=== PATIENT | male | born 1950 | race Caucasian/White ===

== ENCOUNTER 2025-05-13 14:54 | Outpatient (AMB) | payer MEDICARE, OTHER, SELFPAY ==
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
--- OUTSIDE RECORDS SUMMARY | 2025-05-13 18:29 | XMS_ITS ---
Author Name [facility] Organization Unknown Care Team Organization Name Specialty Phone Email Start Date End Da birgit [facility] Denise Rodrigues Primary Care 07/04/2022 4
--- OUTSIDE RECORDS SUMMARY | 2025-05-13 18:29 | XMS_ITS | Clinical Summary ---
Author Organization [facility] Address [address] [place] [id number] Phone Care Team Providers Care Hvac Service Manager Name Role Phone Denise Rodrigues MD Primary Care Provider [phone] Medications No known medications Active Problems No known active problems Social History Tobacco Use Types Packs/Day Years Used Date Smoking Tobacco: Never Assessed Education Answer Date Recorded Are you interested in more education? Not on pito e 12/23/2022 Are you concerned about learning? Not on file 12/23/2022 No 12/23/2022 No 12/23/2022 Digital Access Answer Date Recorded No 01/21/2023 No 01/21/2023 Reliable internet access at home? Not on file 01/21/2023 Device with a working camera? Not on file Sex and Gender Information Value Date Recorded Sex Assigned at Male 07/25/2022 10:10 AM EST Legal Sex Male 10:08 AM EST Gender Identity Male 07/25/2022 10:10 AM EST Sexual Orientation Straight 07/25/2022 10 :10 AM EST Plan of Treatment Health Maintenance Due Date Last Done Comments Adult Td,Tdap Booster 1948 LIPID PANEL 1948 DEPRESSION SCREENING 1960 SMOKING Hx and SMOKELESS TOB ACCO SCREENING 1961 HEPATITIS C SCREENING 1966 PNEUMOCOCCAL VACCINES (50+ y ears) (1 of 1 - PCV) 1998 ZOSTER VACCINES (1 of 2) 1998 RSV VACCINE (1 - 1-dose 75+ series) 2023 INFLUENZA VACCINE (#1) 2025 COVID-19 VACCINE (2023-2 5 season) 2025 HEPATITIS A VACCINES Aged Out No long er eligible based on patient's age to complete this topic HIB VACCINES Aged Out No longer eligi ble based on patient's age to complete this topic MENINGOCOCCAL VACCINES (ACWY) Aged Out No longer eligible based on patient's age to complete this topic MENINGOCOCCAL VACCINES (B) Aged Out N o longer eligible based on patient's age to complete this topic Medical Devices Not on file Insurance [employer] Care Teams Hvac Service Manager Relationship Specialty Start Date End Date Denise Rodrigues MD [address] [place] [id number] PCP - General Internal Medicine 07/25/22 Additional Source Comments The information contained in this document represents components of the legal health record. It is not the complete legal health record.[facility]
--- OUTSIDE RECORDS SUMMARY | 2025-05-13 18:29 | XMS_ITS | Clinical Summary ---
Author Organization [place] [address] [address] [facility] Address [address] [place] [address] Phone Care Team Providers Care Change Control Coordinator Name Role Phone Olu Salinasa Primary Care Provider [phone] Allergies Active Allergy Reactions Criticality Noted Date Comments Aspirin 12/11/2005 Heartburn. Medications atorvastatin (LIPITOR) 40 mg tablet Take 1 tablet (40 mg total) by mouth 1 (one) time each day. 4 Active tamsulosin (FLOMAX) 0.4 mg 24 hr capsule Take 1 capsule (0.4 mg total) by mouth 1 (one) time each day. Take 1 Capsule by mouth daily. Take 30 mins after same meal every day 90 capsule 1 5 Active sildenafiL (VIAGRA) 100 mg tablet TAKE ONE TABLET BY MOUTH APPROXIMATELY ONE HOUR BEFORE SEXUAL ACTIVITY. DO NOT USE MORE THAN ONE DOSE DAILY 10 tablet 1 5 Active ergocalciferol (VITAMIN D-2) 1,250 mcg (50,000 unit) capsule Take 1 capsule (50,000 Units total) by mouth 1 (one) time per week. 12 capsule 5 025 Active Problems Problem Noted Date Diagnosed Date Benign prostatic hyperplasia without lower urinary tract symptoms 11/10/2024 COVID-19 06/11/2022 Prediabetes 07/26/2020 Lipoma of face 08/13/2019 Diverticulosis 10/11/2014 Overview (05/07/2024): CT 10/11 Urolithiasis 10/11/2014 Overview (05/07/2024): CT 2/15 Hematuria 09/22/2014 Erectile dysfunction 05/15/2013 Hypercholesterolemia 09/11/2006 Encounters Date Type Department Care Team Description 05/04/2025 Telephone Internal Medicine - [facility] [address] [place] [id number] Isatu Salinas DO from Last 3 Months Immunizations Name Administration Dates Next Due Influenza trivalent, 0.5mL ( Fluzone High-dose) 65yo and older 05/31/2020 Moderna SARS-CoV-2 COVID-19, mRNA, LNP-S, preservative free 07/27/2021,11/03/2020,10/08/2020 Surgical History Surgery Date Site/Laterality Comments COLONOSCOPY 11/27/2006 PROCEDURE: CO COLONOSCOPY STOMA DX INCLUDING COLLJ SPEC SPX; COMMENT: Zeroogian; hyperplastic polyp; r 10 y OTHER SURGICAL HISTORY 06/27/2005 PROCEDURE: CHG ASSAY OF PROSTATE SPECIFIC ANTIGEN FREE; COMMENT: 0.3 SHOULDER SURGERY PROCEDURE: HISTORICAL SHOULDER SURGERY; COMMENT: Right , dislocation LITHOTRIPSY PROCEDURE: HISTORICAL LITHOTRIPSY; COMMENT: Brecht x 2 KNEE ARTHROSCOPY 09/27/2015 Right PROCEDURE: CO ARTHROSCOPY KNEE DIAGNOSTIC W/WO SYNOVIAL BX SPX; COMMENT: NEOS Medical History Medical History Date Comments Other and unspecified hyperlipidemia 09/11/2006 DX:Other and unspecified hyperlipidemia Diverticulosis 10/11/2014 DX:Diverticulosi s Urolithiasis 10/11/2014 DX:Urolithiasis; COMMENT: CT 2 Hematuria 09/22/2014 DX:Hematuria Erectile dysfunction 05/15/2013 DX:Erectile dysfunction Hyperlipidemia 09/11/2006 DX:Hyperlipidemi a Family History Medical History Relation Name Comments Alcohol abuse Brother x2 1 Other: Other Brother x2 1 brain damage d ue to attempted suicide attempt choked to , depression No Known Problems Daughter 1 No Known Problems Daughter 2 No Known Problems Daughter 3 Dementia Father sepsis Hyperlipidemia Father Breast cancer Mother Dementia Mother ulcers Hyperlipidemia Mother No Known Problems Sister Relation Name Status Comments Brother x2 1 Alive Daughter 1 Alive Daughter 2 Alive Daughter 3 Alive Father Mother Sister Alive Social History Tobacco Use Types Packs/Day Years Used Date Smoking Tobacco: Former Cigarettes Q uit: 08/27/1976 Smokeless Tobacco: Never Alcohol Use Standard Drinks/Week Comments Yes 0 (1 standard drink = 0.6 oz pur e alcohol) Sex and Gender Information Value Date Recorded Sex Assigned at Not on file Legal Sex Male 11:57 AM EST Gender Identity Not on file Sexual Orientation Not on file Obstetrics History Last Filed Vital Signs Vital Sign Reading Time Taken Comments Blood Pressure 118/75 01/21/2025 10:36 AM EDT A Pulse 68 01/21/2025 10:36 AM EDT Temperature - - Respiratory Rate - - Oxygen Saturation - - Inhaled Oxygen Concentration - - Weight 87.4 kg (192 lb 9.6 oz) 01/21/2025 10:36 AM EDT Height 185.4 cm (6' 1 ) 01/21/2025 10:36 AM EDT Body Mass Index 25.41 01/21/2025 10:36 AM EDT Plan of Treatment Upcoming Encounters Date Type Department Care Team (Late st Contact Info) Description 05/18/2025 3:30 PM EDT Office Visit Internal Medicine - [address] [id number] Kami Samaniego NP [address] [place] [id number] Health Maintenance Due Date Last Done Comments DTaP,Tdap,and Td Vaccines (1 - Tdap) 1967 Zoster Vaccines (1 of 2) 1998 Social Influencers of Health Screening 08/05/2022 RSV Immunization Adult Patients (1 - 1-dose 75+ series) 2023 Depression Screening 08/27/2024 02/07/2024 Medicare Annual Wellness Visit 02/06/2025 02/07/2024 Falls Risk Assessment 04/09/2025 04/09/2024 Cholesterol Screening (Lipid Panel) 11/17/2029 11/17/2024, 04/11/2024, 04/11/2024 Influenza Vaccine Discontinued 05/31/2020 Hepatitis C Screening Completed 03/27/2022 COVID-19 Vaccine Discontinued 05/24/2022, 08/2020, 11/03/2020, Additional history exists HIB Vaccines Aged Out No longer eligi ble based on patient's age to complete this topic HPV Vaccines Aged Out No longer eligi ble based on patient's age to complete this topic Hepatitis A Vaccines Aged Out No long er eligible based on patient's age to complete this topic Hepatitis B Vaccines Aged Out No long er eligible based on patient's age to complete this topic IPV Vaccines Aged Out No longer eligi ble based on patient's age to complete this topic MMR Vaccines Aged Out No longer eligi ble based on patient's age to complete this topic Meningococcal ACWY Vaccine Aged Out N o longer eligible based on patient's age to complete this topic Meningococcal B Vaccine Aged Out No l onger eligible based on patient's age to complete this topic Pneumococcal Vaccine: 50+ Years Discontinued RSV Immunization Patients Under 20 months Aged Out No longer eligible based on patient's age to complete this topic Varicella Vaccines Aged Out No longer eligible based on patient's age to complete this topic Procedures Procedure Name Priority Date/Time Associated Diagnosis Comments LIPID PANEL WITH REFLEX TO DIRECT LDL Routine 11/17/2024 3:48 PM EDT Hypercholesterolemi a FALLS RISK ASSESSMENT Routine 04/09/2024 DEPRESSION SCREENING Routine 02/07/2024 HEPATITIS C SCREENING Routine 03/27/2022 from Last 3 Months or Most Recently Relevant to Health Maintenance Results * (ABNORMAL) Lipid panel with reflex to direct LDL (11/17/2024 3:48 PM EDT) Cholesterol 183 0 - 200 mg/dL LAB CHEMISTRY METHOD 11/17/2024 6:58 PM EDT [facility] Triglycerides 59 0 - 150 mg/dL LAB CHEMISTRY METHOD 11/17/2024 6:58 PM EDT [facility] HDL 65 >=40 mg/dL LAB CHEMISTRY METHOD 11/17/2024 6:58 PM EDT [facility] LDL Calculated 106(H) 0 - 100 mg/dL LAB CHEMISTRY METHOD 11/17/2024 6:58 PM EDT [facility] VLDL Cholesterol Zoran 11.8 mg/dL LAB CHEMISTRY METHOD 11/17/2024 6:58 PM EDT [facility] Non HDL Chol. (LDL+VLDL) 118 <145 mg/dL LAB CHEMISTRY METHOD 11/17/2024 6:58 PM EDT [facility] Chol/HDL Ratio 2.8 0.0 - 4.4 LAB CHEMISTRY METHOD 11/17/2024 6:58 PM EDT [facility] Blood Venous blood specimen / Unknown Venipuncture / Unknown 11/17/2024 3:48 PM EDT 11/17/2024 3:52 PM EDT Priscilla Gamboa [facility] BLOOD ORDERABLES Final Resu lt [facility] [address] [place] [address], * Falls Risk Assessment (04/09/2024) [facility] Falls Risk Assessment abstracted Historical Provider HEALTH MAINTENANCE Final Result * Depression Screening (02/07/2024) [facility] Depression Screening abstracted Historical Provider HEALTH MAINTENANCE Final Result * Hepatitis C Screening (03/27/2022) [facility] Hepatitis C Screening negative Historical Provider HEALTH MAINTENANCE Final Result from Last 3 Months or Most Recently Relevant to Health Maintenance Insurance [facility] MEDICARE ADVANTAGE on file Care Teams Change Control Coordinator Relationship Specialty Start Date End Date Isatu Salinas DO [address] [facility] [place] [address] PCP - General Internal Medicine 07/16/24
== END 2025-05-13 15:41 | disposition home or self-care (01) ==
LOC: HO.HSM 14:55
PROVIDERS: PCP Internal Medicine Endocrinology, Diabetes & Metabolism; Visit Provider Psychiatry & Neurology Neurology
DX: G30.1 Alzheimer's disease with late onset (principal); F02.B18 Dementia in other diseases classified elsewhere, moderate, with other behavioral disturbance
CPT/HCPCS: 99205

== ENCOUNTER 2025-05-13 14:54 | Outpatient (REF) | payer MEDICARE, SELFPAY ==
[2025-05-14 05:03] LABS: Syphilis Screen Nonreactive (Nonreactive)
[2025-05-14 06:53] LABS: Lyme Abs Screen <0.90 index
[2025-05-21 12:44] LABS: ABETA 42/40 Ratio 0.157 (> OR = 0.170); Alzeimer's Disease Score 0.7412; Tau protein phosphorylated 217 0.59 pg/mL (< OR = 0.15)
== END 2025-05-13 14:55 | disposition home or self-care (01) ==
LOC: HO.LAB 14:54
PROVIDERS: PCP Internal Medicine Endocrinology, Diabetes & Metabolism; Visit Provider Psychiatry & Neurology Neurology
DX: G30.1 Alzheimer's disease with late onset (principal); F02.B18 Dementia in other diseases classified elsewhere, moderate, with other behavioral disturbance
CPT/HCPCS: 36415; 82233; 82234; 84393; 85652; 86617; 86618; 86780; 99202

== ENCOUNTER 2025-05-25 15:27 | Outpatient (AMB) | payer MEDICARE, SELFPAY ==
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
--- OUTSIDE RECORDS SUMMARY | 2025-05-25 17:28 | XMS_ITS | Clinical Summary ---
Author Organization [place] [address] [address] [facility] Address [address] [place] [address] Phone Care Team Providers Care 911 Telecommunicator Name Role Phone Isatu Salinas DO Primary Care Provider [phone] Allergies Active Allergy Reactions Criticality Noted Date Comments Aspirin 12/11/2005 Heartburn. Medications sildenafiL (VIAGRA) 100 mg tablet TAKE ONE TABLET BY MOUTH APPROXIMATELY ONE HOUR BEFORE SEXUAL ACTIVITY. DO NOT USE MORE THAN ONE DOSE DAILY 10 tablet 1 03/24/20 25 Active donepeziL (ARICEPT) 5 mg tablet Take 1 tablet (5 mg total) by mouth 1 (one) time each day. 05/13/20 25 Active tamsulosin (FLOMAX) 0.4 mg 24 hr capsuleIndicati ons:Benign prostatic hyperplasia without lower urinary tract symptoms Take 1 capsule (0.4 mg total) by mouth 1 (one) time each day. Take 1 Capsule by mouth daily. Take 30 mins after same meal every day 90 capsule 1 05/18/20 25 Active atorvastatin (LIPITOR) 40 mg tablet Take 1 tablet (40 mg total) by mouth at bedtime. 90 each 1 05/19/20 25 026 Active atorvastatin (LIPITOR) 40 mg tablet Take 1 tablet (40 mg total) by mouth 1 (one) time each day. 09/27/19 24 025 Discontin ued(Thera py completed ) tamsulosin (FLOMAX) 0.4 mg 24 hr capsule Take 1 capsule (0.4 mg total) by mouth 1 (one) time each day. Take 1 Capsule by mouth daily. Take 30 mins after same meal every day 90 capsule 1 12/25/19 25 025 Discontin ued(Reord er) Active Problems Problem Noted Date Diagnosed Date Benign prostatic hyperplasia without lower urinary tract symptoms 11/10/2024 COVID-19 06/11/2022 Prediabetes 07/26/2020 Lipoma of face 08/13/2019 Diverticulosis 10/11/2014 Overview (05/07/2024): CT 10/11 Urolithiasis 10/11/2014 Overview (05/07/2024): CT 2 Hematuria 09/22/2014 Erectile dysfunction 05/15/2013 Hypercholesterolemia 09/11/2006 Encounters Date Type Department Care Team Description 05/20/2025 Telephone Internal Medicine - [address] [address] Isatu Salinas DO 05/20/2025 Telephone Internal Medicine - [address] [phone] Christie Maciel MA 05/18/2025 3:30 PM EDT Office Visit Internal Medicine - [address] [phone] Kami Samaniego NP Mixed hyperlipidemia (Primary Dx); Prediabetes; Benign prostatic hyperplasia without lower urinary tract symptoms; MCI (mild cognitive impairment) with memory loss 05/04/2025 Telephone Internal Medicine - [address] [phone] Isatu Salinas, from Last 3 Months Immunizations Immunization Administration Dates Next Due Influenza trivalent, 0.5mL ( Fluzone High-dose) 65yo and older 05/31/2020 Moderna SARS-CoV-2 COVID-19, mRNA, LNP-S, preservative free 07/27/2021,11/03/2020,10/08/2020 Surgical History Surgery Date Site/Laterality Comments COLONOSCOPY 11/27/2006 PROCEDURE: NC COLONOSCOPY STOMA DX INCLUDING COLLJ SPEC SPX; COMMENT: Zeroogian; hyperplastic polyp; r 10 y OTHER SURGICAL HISTORY 06/27/2005 PROCEDURE: CHG ASSAY OF PROSTATE SPECIFIC ANTIGEN FREE; COMMENT: 0.3 SHOULDER SURGERY PROCEDURE: HISTORICAL SHOULDER SURGERY; COMMENT: Right , dislocation LITHOTRIPSY PROCEDURE: HISTORICAL LITHOTRIPSY; COMMENT: Caro x 2 KNEE ARTHROSCOPY 09/27/2015 Right PROCEDURE: NC ARTHROSCOPY KNEE DIAGNOSTIC W/WO SYNOVIAL BX SPX; COMMENT: NEOS Medical History Medical History Date Comments Other and unspecified hyperlipidemia 09/11/2006 DX:Other and unspecified hyperlipidemia Diverticulosis 10/11/2014 DX:Diverticulosi s Urolithiasis 10/11/2014 DX:Urolithiasis; COMMENT: CT 10/11 Hematuria 09/22/2014 DX:Hematuria Erectile dysfunction 05/15/2013 DX:Erectile [...] Cigarettes Q uit: 08/27/1976 Smokeless Tobacco: Never Tobacco Cessation:Counseling Given: Not Answered Alcohol Use Standard Drinks/Week Comments Yes 0 (1 standard drink = 0.6 oz pur e alcohol) Sex and Gender Information Value Date Recorded Sex Assigned at Not on file Legal Sex Male 11:57 AM EST Gender Identity Not on file Sexual Orientation Not on file Obstetrics History Last Filed Vital Signs Vital Sign Reading Time Taken Comments Blood Pressure 100/58 05/18/2025 3:27 PM EDT Pulse 68 05/18/2025 3:27 PM EDT Temperature - - Respiratory Rate - - Oxygen Saturation - - Inhaled Oxygen Concentration - - Weight 87.4 kg (192 lb 9.6 oz) 05/18/2025 3:27 P M EDT Height 185.4 cm (6' 1 ) 01/21/2025 10:36 AM EDT Body Mass Index 25.41 01/21/2025 10:36 AM EDT Plan of Treatment Upcoming Encounters Date Type Department Care Team (Late st Contact Info) Description 11/17/2025 3:00 PM EDT Office Visit Internal Medicine - [facility] [address] [place] [address] Kami Samaniego NP [address] [place] [address] Health Maintenance Due Date Last Done Comments DTaP,Tdap,and Td Vaccines (1 - Tdap) 1967 Zoster Vaccines (1 of 2) 1998 Social Influencers of Health Screening 08/05/2022 RSV Immunization Adult Patients (1 - 1-dose 75+ series) 2023 Depression Screening 08/27/2024 02/07/2024 Medicare Annual Wellness Visit 02/06/2025 02/07/2024 Falls Risk Assessment 04/09/2025 04/09/2024 Cholesterol Screening (Lipid Panel) 05/19/2030 05/19/2025, 11/17/2024, 04/11/2024, Additional history exists Influenza Vaccine Discontinued 05/31/2020 Hepatitis C Screening [...] Procedure Name Priority Date/Time Associated Diagnosis Comments EXTERNAL CLINICAL LAB 05/22/2025 VITAMIN D 25 HYDROXY Routine 05/19/2025 8:39 AM EDT Vitamin D deficiency LIPID PANEL WITH REFLEX TO DIRECT LDL Routine 05/19/2025 8:39 AM EDT Mixed hyperlipidemia HEMOGLOBIN A1C Routine 05/19/2025 8:39 AM EDT Prediabetes EXTERNAL CLINICAL LAB 05/15/2025 EXTERNAL CLINICAL LAB 05/14/2025 HM FALLS RISK ASSESSMENT Routine 04/09/2024 DEPRESSION SCREENING Routine 02/07/2024 HEPATITIS C SCREENING Routine 03/27/2022 from Last 3 Months or Most Recently Relevant to Health Maintenance Results * External clinical lab (05/22/2025) Only the most recent of3 resultswithin the time period is included. us Provider [facility] LAB BLOOD ORDERABLES Fin al Result * (ABNORMAL) Lipid panel with reflex to direct LDL (05/19/2025 8:39 AM EDT) Cholesterol 244(H) 0 - 200 mg/dL LAB CHEMISTRY METHOD 05/19/2025 12:[address] [facility] Triglycerides 97 0 - 150 mg/dL LAB CHEMISTRY METHOD 05/19/2025 12:[address] [facility] HDL 75 >=40 mg/dL LAB CHEMISTRY METHOD 05/19/2025 12:[address] [facility] LDL Calculated 150(H) 0 - 100 mg/dL LAB CHEMISTRY METHOD 05/19/2025 12:[address] [facility] Comment:Estimated LDL Calcul ated using equation: Total cholesterol - HDL cholesterol - (Triglycerides/5) VLDL Cholesterol Zoran 19.4 mg/dL LAB CHEMISTRY METHOD 05/19/2025 12:[address] [facility] Non HDL Chol. (LDL+VLDL) 169(H) <145 mg/dL LAB CHEMISTRY METHOD 05/19/2025 12:[address] [facility] Chol/HDL Ratio 3.3 0.0 - 4.4 LAB CHEMISTRY METHOD 05/19/2025 12:[address] [facility] Blood Venous blood specimen / Unknown Venipuncture / Unknown 05/19/2025 8:39 AM EDT 05/19/2025 8:39 AM EDT Kami Samaniego COMMISSIONS SPECIALIST LAB BLOOD ORDERABLES Final Resul t Performing Organization Address [facility]/ZIP Co de Phone Number [facility] [address] [place] [address], [place] [phone] * (ABNORMAL) Vitamin D 25 hydroxy (05/19/2025 8:39 AM EDT) Vit D, 25-Hydroxy 22.7(L) 30.0 - 80.0 ng/mL LAB CHEMISTRY METHOD 05/19/2025 1:[address] [facility] Blood Venous blood specimen / Unknown Venipuncture / Unknown 05/19/2025 8:39 AM EDT 05/19/2025 8:39 AM EDT Priscilla Gamboa COMMISSIONS SPECIALIST LAB BLOOD ORDERABLES Final Resu lt Performing Organization Address City/[facility]/ZIP Co de Phone Number [facility] [address] [place] [address], [place] [phone] * Hemoglobin A1c (05/19/2025 8:39 AM EDT) Hemoglobin A1C 6.3 <6.5 % LAB CHEMISTRY METHOD 05/19/2025 1:[address] [facility] Mean Bld Glu Estim. 134 mg/dL LAB CHEMISTRY METHOD 05/19/2025 1:[address] [facility] Blood Venous blood specimen / Unknown Venipuncture / Unknown 05/19/2025 8:39 AM EDT 05/19/2025 8:39 AM EDT Kami Samaniego COMMISSIONS SPECIALIST LAB BLOOD ORDERABLES Final Resul t [facility] [address] [place] [address], * Falls Risk Assessment (04/09/2024) Falls Risk Assessment abstracted Historical Provider MD HEALTH MAINTENANCE Final Result * Depression Screening (02/07/2024) Depression Screening abstracted Historical Provider MD HEALTH MAINTENANCE Final Result * Hepatitis C Screening (03/27/2022) Hepatitis C Screening negative Historical Provider MD HEALTH MAINTENANCE Final Result from Last 3 Months or Most Recently Relevant to Health Maintenance Insurance [employer] on file Care Teams 911 Telecommunicator Relationship Specialty Start Date End Date Isatu Salinas DO [address] [place] [address] PCP - General Internal Medicine 07/16/24
--- OUTSIDE RECORDS SUMMARY | 2025-05-25 17:28 | XMS_ITS | Encounter Summary ---
Author Organization [facility] Address [address] [place] [address] Care Team Providers Care Concrete Pump Operator Name Role Phone TinIsatu dawn Primary Care Provider [phone] Reason for Visit * Reason Onset Date Comments Results 05/20/2025 Encounter Details Date Type Department Care Team (Late st Contact Info) Description 05/20/2025 Telephone Internal Medicine - [facility] [address] [place] [phone] Christie Maciel MA Social History Tobacco Use Types Packs/Day Years [...] on file Sexual Orientation Not on file documented as of this encounter Progress Notes * Valery Toth MA - 05/20/2025 2:25 PM EDT Spoke to pts dtr Leny and told her pts lipids elevated and pt needs to restart statin as prescribed. * Lin Comer - 05/20/2025 2:13 PM EDT Dtr Leny calling back pls call her @ [phone] * Christie Maciel MA - 05/20/2025 8:44 AM EDT Lvm for daughter Leny (vr+) to call back on home #. Please transfer call to ext. [phone] or A side. * Christie Maciel MA - 05/20/2025 8:44 AM EDT ----- Message from Kyle Samaniego NP sent at 05/19/2025 4:51 PM EDT ----- Please call patient or his daughter Elevated cholesterol, has a 10 year cardiac risk of 16 %, will restart atorvastatin 40 mg nightly. documented in this encounter Plan of Treatment Upcoming Encounters Date Type Department Care Team (Late st Contact Info) Description 11/17/2025 3:00 PM EDT Office Visit Internal Medicine - [facility] [address] [place], [place] [phone] Kami Samaniego NP [address] [place] [address] documented as of this encounter Visit Diagnoses Not on filedocumented in this encounter Care Teams Concrete Pump Operator Relationship Specialty Start Date End Date Isatu Salinas DO [address] [place] [address] PCP - General Internal Medicine 07/16/24 documented as of this encounter
--- OUTSIDE RECORDS SUMMARY | 2025-05-25 17:28 | XMS_ITS | Clinical Summary ---
Author Organization [facility] Address [address] [place] [address] Phone Care Team Providers Care Convertible Sofa Bedspring Tester Name Role Phone Denise Rodrigues MD Primary Care Provider [phone] Medications No known medications Active Problems No [...] [employer] Care Teams Convertible Sofa Bedspring Tester Relationship Specialty Start Date End Date Denise Rodrigues MD [address] [place] [address] PCP - General Internal Medicine 07/25/22 Additional Source Comments The information contained in this document represents components of the legal health record. It is not the complete legal health record.[facility]
--- OUTSIDE RECORDS SUMMARY | 2025-05-25 17:28 | XMS_ITS | Encounter Summary ---
Author Organization [facility] Address [address] [place] [address] Care Team Providers Care Equity Structurer Name Role Phone Isatu Salinas DO Primary Care Provider [phone] Reason for Visit * Reason Onset Date Comments INFORMATION NEEDED 05/20/2025 VITAMIN D QUE RY Encounter Details Date Type Department Care Team (Late st Contact Info) Description 05/20/2025 Telephone Internal Medicine - [facility] [address] [place] [address] Isatu Salinas DO [address] [place] [address] Social History Tobacco Use Types Packs/Day Years [...] as of this encounter Progress Notes * Christie Holliday MA - 05/20/2025 4:45 PM EDT left for Marissa per her request. [id number] vitamin D3 2000 unit daily supplement to correct this * Medina Kelley - 05/20/2025 4:21 PM EDT Who is calling -Pts daughter Marissa What is specific problem -pts daughter stated she spoke to someone yesterday and was advised her dad will be needing Vitamin D supplement she can get over the counter. Pt wants to know what vitamin dsupplement should she get? Marissa stated she will be unreachable so please leave a detail messageon her vm. Is a callback needed -yes documented in this encounter Plan of Treatment Upcoming Encounters Date Type Department Care Team (Late st Contact Info) Description 11/17/2025 3:00 PM EDT Office Visit Internal Medicine - [facility] [address] [place] [address] Kami Samaniego NP [address] [place] [address] documented as of this encounter Visit Diagnoses Not on filedocumented in this encounter Care Teams Equity Structurer Relationship Specialty Start Date End Date Isatu Salinas DO [address] [place] [address] PCP - General Internal Medicine 07/16/24 documented as of this encounter
== END 2025-05-25 16:03 | disposition home or self-care (01) ==
LOC: HO.HSM 15:27
PROVIDERS: PCP Internal Medicine Endocrinology, Diabetes & Metabolism; Visit Provider Psychiatry & Neurology Neurology
DX: G30.1 Alzheimer's disease with late onset (principal); F02.B18 Dementia in other diseases classified elsewhere, moderate, with other behavioral disturbance
CPT/HCPCS: 99214

== ENCOUNTER → 2025-05-25 15:27 | Outpatient (BNVA) | payer MEDICARE, SELFPAY | PROVIDERS: PCP Internal Medicine Endocrinology, Diabetes & Metabolism; Visit Provider Psychiatry & Neurology Neurology | DX: G30.1 Alzheimer's disease with late onset (principal); F02.B18 Dementia in other diseases classified elsewhere, moderate, with other behavioral disturbance | CPT/HCPCS: 99212 ==

== ENCOUNTER 2025-08-17 15:16 | Outpatient (AMB) | payer MEDICARE, SELFPAY ==
--- NOTE | 2025-08-17 15:39 | A.OFFVIS_ITS ---
Intake Visit Reasons: 3m dementia Allergies aspirin Adverse Reaction (Mild, Unverified 05/13/20 18:51) UPSET STOMACH PER RN HPI Comments Details: The patient is a 74 year old male presenting for follow-up and management of Alzheimer's disease. He lives with his daughter who is his primary caregiver and manages his medications. The patient himself denies any symptoms of Alzheimer's disease, stating he feels great, is sleeping and eating well, and does not drink alcohol. He reports he walks a lot and attributes his leg cramps to this activity. In contrast, his daughter reports significant behavioral and cognitive issues. She describes behavioral symptoms, primarily anxiety rated at 8 out of 10, which manifests as pacing and waiting outside for long periods for a ride. Cognitive deficits include short-term memory loss, such as forgetting which bathroom to use on a daily basis for five weeks, and confusion. The caregiver is concerned about wandering, recounting an incident where he walked approximately two miles [place] and became confused. She also notes he has difficulty operating his phone and television. The daughter states that his current medications, donepezil and memantine, have made no noticeable difference in his condition. [facility] Medical History (Updated 05/25/25 @ 15:48 by Vel Coombs MD) Vitamin D deficiency MCI (mild cognitive impairment) Benign prostatic hyperplasia without lower urinary tract symptoms Urolithiasis Prediabetes Lipoma of face Hypercholesterolemia Hematuria Erectile dysfunction Diverticulosis Review of Systems Narrative - Constitutional: Reports feeling well. - Neurological: Denies symptoms of Alzheimer's disease. - Psychiatric: Denies anxiety, though his daughter reports it as significant. Denies anger or depression. - Musculoskeletal: Reports leg cramps. Physical Exam Neuro Other: Mental Status: Alert and oriented to person, place, and time. Normal attention. Normal spontaneous speech, fluency, and comprehension. Cranial Nerves: CN II: Visual estrada full to confrontation, visual acuity intact. CN III, IV, : Pupils equal, round, reactive to light and accommodation. Extraocular movements are normal. CN V: Facial sensation is normal. CN VII: Facial movements symmetrical. CN VIII: Hearing intact to bedside conversation is normal. CN IX, X: Palate elevates symmetrically. CN XI: Shoulder shrug and head turn symmetrical. CN XII: Tongue midline without atrophy or fasciculations. Extrapyramidal: Full facial expressions and blinking. No rigidity. Movements are appropriate with no tremor or abnormality. Speech: Normal; no dysarthria or tremor. Assessment & Plan Assessment & Plan (1) Alzheimer dementia: Comment: [place] [facility] [place]: Abeta/tau serum test: suggestive of AD MRI brain WWO at [facility] in December 2024: Mod severe cerebral atrophy and mod MVD Labs at [facility] in 2024: B12: 266, Folate ok, TSH 2.9 Code(s): G30.9 - Alzheimer's disease, unspecified; F02.80 - Dementia in other diseases classified elsewhere, unspecified severity, without behavioral disturbance, psychotic disturbance, mood disturbance, and anxiety Category: Medical Qualifiers: Alzheimer's disease onset: late onset Dementia severity: moderate Dementia behavioral or psychological symptom: with other behavioral disturbance Qualified Code(s): G30.1 - Alzheimer's disease with late onset; F02.B18 - D ementia in other diseases classified elsewhere, moderate, with other behavioral disturbance Plan Impression: Mild to moderate severe Alzheimer type dementia with behavioral symptoms Rec: a: Stop Donepezil, wait for a week. If no change, no reason to restart. b: After a week, same experiment can be done with Memantine. Plan is to continue meds only if they were making any day to day difference. c: Quetiapine 25mg one a day as needed for anxiety d: Try not to argue or correct his statements. I know it is tough but learn to agree with him when you are not agreeing with him. I had a detailed discussion with the patient and his daughter regarding his diagnosis of Alzheimer's disease. I explained that his lack of awareness of his symptoms (anosognosia) is a feature of the disease. We reviewed the current lack of perceived benefit from donepezil and memantine and agreed on a plan to assess their efficacy by stopping them one at a time for a one-week trial, starting with donepezil. To manage his significant behavioral disturbances, including anxiety and wandering, I prescribed quetiapine 25 mg daily. I strongly advised the patient that he is not safe to drive due to his cognitive impairment. I addressed his question about monitoring disease progression, clarifying that it is based on clinical symptoms rather than routine imaging. The patient requested a second opinion, and I encouraged him to do so, reassuring him there would be no interference. I advised the daughter to contact me with any changes during the medication trials and scheduled a follow-up in two months. Medications: New quetiapine 25 mg orally one a day as needed; 30 tabs 0RF Coding Level of Care Code Est Pt Level 4 (46753) Diagnoses Moderate late onset Alzheimer's dementia with other behavioral disturbance G30.1; F02.B18 Alzheimer's disease onset: late onset Dementia severity: moderate Dementia behavioral or psychological symptom: with other behavioral disturbance
--- OUTSIDE RECORDS SUMMARY | 2025-08-17 18:24 | XMS_ITS | Clinical Summary ---
Author Organization [facility] Address [address] [place] [address] Phone Care Team Providers Care Rental Car Deliverer Name Role Phone Denise Rodrigues MD Primary Care Provider [phone] Medications No known medications Active Problems No [...] 2023 INFLUENZA VACCINE (#1) 2025 COVID-19 VACCINE (2024-2 6 season) 2025 HEPATITIS A VACCINES Aged Out [...] [employer] Care Teams Rental Car Deliverer Relationship Specialty Start Date End Date Denise Rodrigues MD [address] [place] [address] PCP - General Internal Medicine 07/25/22 Additional Source Comments The information contained in this document represents components of the legal health record. It is not the complete legal health record.[facility]
--- OUTSIDE RECORDS SUMMARY | 2025-08-17 18:24 | XMS_ITS | Clinical Summary ---
Author Organization Anitha Peguero [facility] Address [address] [place] [address] Care Team Providers Care Hand Tier Name Role Phone Unavailable Primary Care Provider Unavailabl e Allergies Active Allergy Reactions Criticality Noted Date Comments Aspirin GI Intolerance Medications simvastatin (ZOCOR) 80 MG tablet 80 MG PO DAILY 0 Active sildenafiL (VIAGRA) 50 MG tablet 50 MG PO DAILY PRN Erectile Dysfunction 0 Active sennosides (SENOKOT) 8.6 mg tablet 8.6 MG PO BID 50 tablet 0 0 Active acetaminophen (TYLENOL) 500 MG tablet 500 MG PO Q4H 90 tablet 0 0 Active apixaban (ELIQUIS) 2.5 mg Tab 2.5 MG PO BID 41 tablet 0 0 Active oxyCODONE (ROXICODONE) 5 MG immediate release tablet 5 - 15 MG PO Q3H PRN Breakthrough Pain 50 tablet 0 0 Active tamsulosin (FLOMAX) 0.4 mg cap 24 hr capsule 0.4 MG PO DAILY 10 capsule 0 0 Active polyethylene glycol (MIRALAX) 17 gram packet 17 G PO DAILY 15 packet 0 0 Active Active Problems Problem Noted Date Diagnosed Date Presence of left artificial hip joint 07/29/2020 Presence of right artificial hip joint 0 Social History Tobacco Use Types Packs/Day Years Used Date Smoking Tobacco: Never Assessed Sex and Gender Information Value Date Recorded Sex Assigned at Not on file Legal Sex Male 11:47 PM EST Gender Identity Not on file Sexual Orientation Not on file Last Filed Vital Signs Vital Sign Reading Time Taken Comments Blood Pressure - - Pulse - - Temperature - - Respiratory Rate - - Oxygen Saturation - - Inhaled Oxygen Concentration - - Weight 75 kg (165 lb 5.5 oz) 07/29/2020 6:02 PM EST Height 182.9 cm (6') 07/29/2020 6:02 PM EST Body Mass Index 22.42 07/29/2020 6:02 PM EST Plan of Treatment Health Maintenance Due Date Last Done Comments Blood Pressure 1948 Depression Screening 1960 Hepatitis C Screening 1966 DTaP,Tdap,and Td Vaccines (1 - Tdap) 1967 Pneumococcal Vaccine: 50+ Ye ars (1 of 1 - PCV) 1998 Zoster Vaccine (1 of 2) 1998 COVID-19 Vaccine (1 - 2024-2 6 season) 2025 Influenza Vaccine (#1) 2025 Meningococcal B Vaccines Aged Out No longer eligible based on patient's age to complete this topic Meningococcal Vaccines Aged Out No lo nger eligible based on patient's age to complete this topic Medical Devices Implanted Type Area Turpentine Farmer Device Identifier Shelf Expiration Date Model / Serial / Lot Shell Acetabular 54mm F 3hole Implanted:Qty: 1 on 06/03/2020 08/01/2030 NICKI 0100 [id number] / / [id number] Description:Surgeon: Mary ragland MD; Implant Inventory: M.OR CONS; Implant Type: M450; Implant: [id number]; Implant Site: [facility]; Implant Count: 1.0 Head 32mm Femoral Hip Implanted:Qty: 1 on 06/03/2020 08/14/2028 NICKI 12-1 [id number] / / [id number] Description:Surgeon: Mary ragland MD; Implant Inventory: M.OR CONS; Implant Type: M450; Implant: [id number]; Implant Site: [facility]; Implant Count: 1.0 Acetabular Liner 32mm F Implanted:Qty: 1 on 06/03/2020 04/29/2022 NICKI 0100 [id number] / / [id number] Description:Surgeon: Mary ragland MD; Implant Inventory: M.OR CONS; Implant Type: M450; Implant: [id number]; Implant Site: [facility]; Implant Count: 1.0 Bone Screw 6.5 X 30 Self Tap Implanted:Qty: 2 on 06/03/2020 03/04/2030 NICKI [id number] / / [id number] Description:Surgeon: Mary ragland MD; Implant Inventory: M.OR CONS; Implant Type: M450; Implant: [id number]; Implant Site: [facility]; Implant Count: 2.0 Stem Femoral Hip Taperloc Implanted:Qty: 1 on 06/03/2020 02/09/2029 NICKI 51-1 [id number] / / [id number] Description:Surgeon: Mary ragland MD; Implant Inventory: M.OR CONS; Implant Type: M450; Implant: [id number]; Implant Site: [facility]; Implant Count: 1.0 Taperloc Femoral Stem 15 X 150 Implanted:Qty: 1 on 07/29/2020 05/14/2029 NICKI 51-1 [id number] / / [id number] Description:Surgeon: Mary ragland MD; Implant Inventory: M.OR CONS; Implant Type: M450; Implant: [id number]; Implant Site: [facility]; Implant Count: 1.0 Cer Bioloxd Mod Hd 32mm+3nk Implanted:Qty: 1 on 07/29/2020 12/02/2028 NICKI 12-1 [id number] / / [id number] Description:Surgeon: Mary ragland MD; Implant Inventory: M.OR CONS; Implant Type: M450; Implant: [id number]; Implant Site: [facility]; Implant Count: 1.0 Shell Acetabular 54mm F 3hole Implanted:Qty: 1 on 07/29/2020 04/20/2030 NICKI 0100 [id number] / / [id number] Description:Surgeon: Mary ragland MD; Implant Inventory: M.OR CONS; Implant Type: M450; Implant: [id number]; Implant Site: [facility]; Implant Count: 1.0 Liner Implant Acetabular High Implanted:Qty: 1 on 07/29/2020 07/26/2024 NICKI 2011 [id number] / / [id number] Description:Surgeon: Mary ragland MD; Implant Inventory: M.OR CONS; Implant Type: M450; Implant: [id number]; Implant Site: [facility]; Implant Count: 1.0
--- OUTSIDE RECORDS SUMMARY | 2025-08-17 18:24 | XMS_ITS | Clinical Summary ---
Author Organization [place] [address] [address] [facility] Building Address [address] [place] [address] Phone Care Team Providers Care Extension Division Director Name Role Phone Jada Morgan MD Primary Care Provider Allergies Active Allergy Reactions Criticality Noted Date Comments Aspirin 12/11/2005 Heartburn. Medications sildenafiL (VIAGRA) 100 mg tablet TAKE ONE TABLET BY MOUTH APPROXIMATELY ONE HOUR BEFORE SEXUAL ACTIVITY. DO NOT USE MORE THAN ONE DOSE DAILY 10 tablet 1 5 Active donepeziL (ARICEPT) 5 mg tablet Take 1 tablet (5 mg total) by mouth 1 (one) time each day. 5 Active tamsulosin (FLOMAX) 0.4 mg 24 hr capsuleIndicati ons:Benign prostatic hyperplasia without lower urinary tract symptoms Take 1 capsule (0.4 mg total) by mouth 1 (one) time each day. Take 1 Capsule by mouth daily. Take 30 mins after same meal every day 90 capsule 1 5 Active atorvastatin (LIPITOR) 40 mg tablet Take 1 tablet (40 mg total) by mouth at bedtime. 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 Diverticulosis 10/11/2014 Overview (05/07/2024): CT 10/11 Urolithiasis 10/11/2014 Overview (05/07/2024): CT 10/11 Hematuria 09/22/2014 Erectile dysfunction 05/15/2013 Hypercholesterolemia 09/11/2006 Encounters Date Type Department Care Team Description 07/15/2025 Telephone Transport Company Manager [facility] [address] [facility] [place] [address] Aaron Horvath PA 05/20/2025 [facility] [phone] Isatu Salinas DO 05/20/2025 [facility] [address] [place] [address] Christie Maciel MA 05/18/2025 3:30 PM EDT [facility] [address] Kami Samaniego, OMAIRA Mixed hyperlipidemia (Primary Dx); Prediabetes; Benign prostatic hyperplasia without lower urinary tract symptoms; MCI (mild cognitive impairment) with memory loss from Last 3 Months Immunizations Immunization Administration [...] , dislocation LITHOTRIPSY PROCEDURE: HISTORICAL LITHOTRIPSY; COMMENT: Rachellecht x 2 KNEE ARTHROSCOPY 09/27/2015 Right PROCEDURE: [...] Years Used Date Smoking Tobacco: Former Cigarettes 0 Q uit: 08/27/1976 Smokeless Tobacco: Never Tobacco [...] PM EDT Office Visit Internal Medicine - [address] [phone] Kami Samaniego NP [address] [place] [address] Health Maintenance Due Date Last Done Comments DTaP,Tdap,and Td Vaccines (1 - Tdap) 1967 Zoster Vaccines (1 of 2) 1998 Social Influencers of Health Screening 08/05/2022 RSV Immunization Adult Patients (1 - 1-dose 75+ series) 2023 Depression Screening 08/27/2024 02/07/2024 Medicare Annual Wellness Visit 02/06/2025 02/07/2024 Falls Risk Assessment 04/09/2025 04/09/2024 Cholesterol Screening (Lipid Panel) 05/19/2030 05/19/2025, 11/17/2024, 04/11/2024, Additional history exists Abdominal Aortic Aneurysm (AAA) Screen Discontinued 09/01/2019, 09/01/2019 Influenza Vaccine Discontinued 05/31/2020 Hepatitis C Screening [...] A1C Routine 05/19/2025 8:39 AM EDT Prediabetes FALLS RISK ASSESSMENT Routine 04/09/2024 DEPRESSION SCREENING Routine 02/07/2024 HEPATITIS C SCREENING Routine 03/27/2022 US ABDOMINAL AORTA REAL TIME SCREEN STUDY AAA Routine 09/01/2019 9:06 AM EST Encounter for screening for cardiovascular disorders from Last 3 Months or Most Recently Relevant to Health Maintenance Results * External clinical lab (05/22/2025) us Provider [facility] LAB BLOOD ORDERABLES Fin al Result * (ABNORMAL) Lipid panel with reflex to direct LDL (05/19/2025 8:39 AM EDT) Cholesterol 244(H) 0 - 200 mg/dL LAB CHEMISTRY METHOD 05/19/2025 12:53 PM [facility] Triglycerides 97 0 - 150 mg/dL LAB CHEMISTRY METHOD 05/19/2025 12:53 PM [facility] HDL 75 >=40 mg/dL LAB CHEMISTRY METHOD 05/19/2025 12:53 PM [facility] LDL Calculated 150(H) 0 - 100 mg/dL LAB CHEMISTRY METHOD 05/19/2025 12:53 PM [facility] Comment:Estimated LDL Calcul ated using equation: Total cholesterol - HDL cholesterol - (Triglycerides/5) VLDL Cholesterol Zoran 19.4 mg/dL LAB CHEMISTRY METHOD 05/19/2025 12:53 PM [facility] Non HDL Chol. (LDL+VLDL) 169(H) <145 mg/dL LAB CHEMISTRY METHOD 05/19/2025 12:53 PM [facility] Chol/HDL Ratio 3.3 0.0 - 4.4 LAB CHEMISTRY METHOD 05/19/2025 12:53 PM [facility] Blood Venous blood specimen / Unknown Venipuncture / Unknown 05/19/2025 8:39 AM EDT 05/19/2025 8:39 AM EDT us Kami Samaniego [facility] LAB BLOOD ORDERABLES Final Resul t [facility] [address] [place] [address], [place] [phone] * (ABNORMAL) Vitamin D 25 hydroxy (05/19/2025 8:39 AM EDT) Vit D, 25-Hydroxy 22.7(L) 30.0 - 80.0 ng/mL LAB CHEMISTRY METHOD 05/19/2025 1:44 PM EDT [facility] Blood Venous blood specimen / Unknown Venipuncture / Unknown 05/19/2025 8:39 AM EDT 05/19/2025 8:39 AM EDT Priscilla Gamboa [facility] LAB BLOOD ORDERABLES Final Resu lt Performing Organization Address [facility] Co de Phone Number [facility] [address] [place] [address], [place] [phone] * Hemoglobin A1c (05/19/2025 8:39 AM EDT) Hemoglobin A1C 6.3 <6.5 % LAB CHEMISTRY METHOD 05/19/2025 1:31 PM EDT [facility] Mean Bld Glu Estim. 134 mg/dL LAB CHEMISTRY METHOD 05/19/2025 1:31 PM EDT [facility] Blood Venous blood specimen / Unknown Venipuncture / Unknown 05/19/2025 8:39 AM EDT 05/19/2025 8:39 AM EDT us Kami Samaniego [facility] LAB BLOOD ORDERABLES Final Resul t Performing Organization Address City/[facility]/ZIP Co de Phone Number [facility] [address] [place] [address], [place] [phone] * Falls Risk Assessment (04/09/2024) Falls Risk Assessment abstracted Historical Provider HEALTH MAINTENANCE Final Result * Depression Screening (02/07/2024) Depression Screening abstracted Historical Provider HEALTH MAINTENANCE Final Result * Hepatitis C Screening (03/27/2022) Hepatitis C Screening negative Historical Provider HEALTH MAINTENANCE Final Result * US ABDOMINAL AORTA REAL TIME SCREEN STUDY AAA (09/01/2019 9:06 AM EST) Anatomical Region Laterality Modality Ultrasound 08/13/2019 2:12 PM EST Narrative 09/01/2019 10:02 AM EST EXAM: Abdominal aorta ultrasound, AAA screening HISTORY: Abdominal aortic aneurysm screening COMPARISON: Abdominal CT 10/08/2014 FINDINGS: Proximal aorta measures 2.7 cm in maximal diameter. Mid aorta measures 2.4 cm. Distal aorta measures 1.8 cm. Proximal right common iliac artery measures 1.3 cm. Proximal left common iliac artery measures 1.3 cm. Echogenicities along the vascular yoo from the mid aorta through the proximal common iliac arteries from atherosclerotic disease. IMPRESSION: IMPRESSION: No evidence of an abdominal aortic aneurysm. Atherosclerotic disease. Procedure Note Zeynep De La Rosa MD - 08/15/2022 EXAM: Abdominal aorta ultrasound, AAA screening HISTORY: Abdominal aortic aneurysm screening COMPARISON: Abdominal CT 10/08/2014 FINDINGS: Proximal aorta measures 2.7 cm in maximal diameter. Mid aortameasures 2.4 cm. Distal aorta measures 1.8 cm. Proximal right common iliac artery measures1.3 cm. Proximal left common iliac artery measures 1.3 cm. Echogenicities along thevascular yoo from the mid aorta through the proximal common iliac arteries from atheroscleroticdisease. IMPRESSION: IMPRESSION: No evidence of an abdominal aortic aneurysm. Atherosclerotic disease. Denise Rodrigues MD IMG US PROCEDURES Final Result from Last 3 Months or Most Recently Relevant to Health Maintenance Insurance [employer] on file Care Teams Extension Division Director Relationship Specialty Start Date End Date Jada Morgan MD [address] [place] [address] [place] P[place] - General Internal Medicine 07/15/25
== END 2025-08-17 15:59 | disposition home or self-care (01) ==
LOC: HO.HSM 15:16
PROVIDERS: PCP Internal Medicine Endocrinology, Diabetes & Metabolism; Visit Provider Psychiatry & Neurology Neurology
DX: G30.1 Alzheimer's disease with late onset (principal); F02.B18 Dementia in other diseases classified elsewhere, moderate, with other behavioral disturbance
CPT/HCPCS: 99214

== ENCOUNTER → 2025-08-17 15:16 | Outpatient (BNVA) | payer MEDICARE, SELFPAY | PROVIDERS: PCP Internal Medicine Endocrinology, Diabetes & Metabolism; Visit Provider Psychiatry & Neurology Neurology | DX: G30.1 Alzheimer's disease with late onset (principal); F02.B18 Dementia in other diseases classified elsewhere, moderate, with other behavioral disturbance | CPT/HCPCS: 99212 ==